=== PATIENT | male | born 1995 | race Caucasian/White ===

== ENCOUNTER 2021-01-11 18:41 | Emergency (ER) | payer OTHER ==
[~2021-01-11] VITALS: Ht 175.3 cm; Wt 136.1 kg
[2021-01-11] MEDS ORDERED: METHOCARBAMOL500 M2 PO (20:59)
[2021-01-11 21:27] VITALS: BP 134/74
== END 2021-01-11 21:28 | disposition home or self-care (01) ==
LOC: ER 18:41
DX: S63.502A Unspecified sprain of left wrist, initial encounter (principal); S39.013A Strain of muscle, fascia and tendon of pelvis, initial encounter; J45.909 Unspecified asthma, uncomplicated; V43.53XA Car driver injured in collision with pick-up truck in traffic accident, initial encounter; Y93.89 Activity, other specified; Y92.89 Other specified places as the place of occurrence of the external cause; Y99.8 Other external cause status